=== PATIENT | female | born 1975 | race Caucasian/White ===

== ENCOUNTER 2018-12-03 08:09 | Emergency (ER) | payer OTHER ==
[2018-12-03] MEDS ORDERED: SOLUMEDROL 125 MG/2 ML 125 MG/2 ML PDS IM ONE (09:37)
[2018-12-03] MEDS ORDERED: KETOROLAC TROMETHAMINE 30 MG/ML SOL IM ONE (09:37)
[2018-12-03 09:38] LABS: APPEARANCE,URINE Clear; BILIRUBIN,URINE NEGATIVE (NEGATIVE); COLOR,URINE Light yellow; GLUCOSE, URINE (UA) NEGATIVE (NEGATIVE); KETONES,URINE NEGATIVE (NEGATIVE); LEUKOCYTE ESTERASE ,URINE NEGATIVE (NEGATIVE); NITRATE,URINE NEGATIVE (NEGATIVE); OCCULT BLOOD,URINE NEGATIVE (NEG-TRACE); UROBILINOGEN,URINE 0.2 (0.2-1.0 EU)
[2018-12-03] MEDS ORDERED: KETOROLAC TROMETHAMINE 30 MG/ML SOL ONE (09:39)
[2018-12-03] MEDS ORDERED: SOLUMEDROL 125 MG/2 ML 125 MG/2 ML PDS ONE (09:39)
[2018-12-03 09:55] VITALS: TEMP 98.1
[2018-12-03 10:00] LABS: RBC,URINE NEGATIVE (0-3AV/HPF)
[2018-12-03 10:01] LABS: BACTERIA TRACE (< 1+); CRYSTALS NEGATIVE (0-3 AVE/HPF); EPITHELIAL CELLS 0-2 (SQUAMOUS)
[2018-12-03] MEDS ORDERED: APAP/HYDROCODONE 1 EACH TABLET PO ONE (10:34)
[2018-12-03] MEDS ORDERED: DIAZEPAM 5 MG TAB PO ONE (10:35)
[2018-12-03] MEDS ORDERED: APAP/HYDROCODONE 1 EACH TABLET ONE (10:40)
[2018-12-03] MEDS ORDERED: DIAZEPAM 5 MG TAB ONE (10:40)
[2018-12-03] MEDS ORDERED: FENTANYL 100MCG/2ML SOL IV ONE (11:26)
[2018-12-03] MEDS ORDERED: FENTANYL 100MCG/2ML SOL ONE (11:31)
[2018-12-03 12:35] LABS: CALCIUM 8.2 mg/dl (8.5-10.1); CARBON DIOXIDE 26.4 mEq/L (21-32); CREATININE 0.68 mg/dl (0.60-1.00)
[2018-12-03 13:36] VITALS: BP 143/85; PULSE 92; RESP 18; O2SAT 99
[2018-12-03] MEDS ORDERED: SODIUM CHLORIDE 0.9% FLUSH 10 ML SOL IV PRN (13:36)
[2018-12-03 13:38] LABS: BASOPHILS % (AUTO) 0 % (0-3); EOSINOPHILS % (AUTO) 0 % (0-9); HEMATOCRIT 44 % (35-47); HEMOGLOBIN 14.2 gm/dl (12.0-15.5); LYMPHOCYTES % (AUTO) 11.6 % (10-50); MEAN CORPUSCULAR HEMOGLOBIN 30.5 pg (27.0-32.0); MEAN CORPUSCULAR HGB CONC 32.1 gm/dl (32.0-36.0); MEAN CORPUSCULAR VOLUME 95 fL (81-99); MONOCYTES % (AUTO) 1.7 % (0-12); NEUTROPHILS % (AUTO) 85.9 % (37-80)
== END 2018-12-03 14:31 | disposition home or self-care (01) | DRG 563 ==
LOC: ED 08:09
DX: S39.012A Strain of muscle, fascia and tendon of lower back, initial encounter (principal)
CPT/HCPCS: 36415; 72120; 72131; 72148; 80048; 81001; 85025; 96372; 96374; 99283; 99285; J1885; J2930; J3010; A9270-GY